=== PATIENT | female | born 1980 | race Caucasian/White ===

== ENCOUNTER 2020-03-19 13:40 | Emergency (ER) | payer OTHER ==
[~2020-03-19] VITALS: Ht 160 cm; Wt 100.0 kg
[2020-03-19 13:40] VITALS: BP 168/116
[2020-03-19] MEDS ORDERED: KETOROLAC 30 MG/ML VIAL. IV ONE (14:30)
[2020-03-19] MEDS ORDERED: diazePAM 5 MG TABLET PO ONE (14:30)
[2020-03-19] MEDS ORDERED: KETOROLAC 30 MG/ML VIAL. IM ONE (14:45)
[2020-03-19 15:17] LABS: BILIRUBIN,URINE NEGATIVE (NEG); CLARITY,URINE CLEAR; COLOR,URINE YELLOW; NITRITE,URINE NEGATIVE (NEG); PH,URINE 5.5 (<5.0-8.0); PROTEIN,URINE NEGATIVE (NEG-TRACE); UROBILINOGEN,URINE 0.2 mg/dL (0.2 mg/dL)
[2020-03-19 15:28] LABS: BACTERIA,URINE FEW /HPF (0-FEW); RBC,URINE 0 /HPF (0-2); WBC,URINE 0 /HPF (0-4)
[2020-03-19] MEDS ORDERED: DIAZ5TAB PO (15:36)
[2020-03-19] MEDS ORDERED: NAPR-514 PO (15:36)
--- NOTE | 2020-03-19 15:37 | ED.ADGEN ---
Past Medical History Past Medical History: No Pertinent History Past Surgical History: No Surgical History Smoking Status: Current Every Day Smoker Additional Information: 0.25 PPD Alcohol Use: None General Adult EDM: Chief Complaint: BACK INJURY HPI: HPI: Patient is a 40 year old female who presents to the emergency department via EMS with complaints of low back pain that radiates to her left buttock and leg. Patient denies any known injury however she reports that she was at work and bent over to pick something up and her back locked up on her. Patient was found by EMS on the floor on her hands and knees. Patient denies a fall. She denies any dysuria, hematuria, increased urinary frequency, fever, cough, sore throat, abdominal pain, nausea, vomiting, or diarrhea. She denies any saddle anesthesia, or loss of bowel/bladder control. She currently rates her pain a 8 out of 10 on the pain scale, she denies any alleviating factors, the pain is worse with movement and weightbearing. Review of Systems: Review of Systems: Complete ROS is negative unless otherwise noted in HPI. Current Medications: Current Medications Medications (Trade) Dose Ordered Sig/[place] Start Time Stop Time Status Last Admin Dose Admin Diazepam (Valium) 5 mg 1X ONCE 03/19/20 14:30 03/19/20 14:31 DC 03/19/20 14:31 5 MG Ketorolac Tromethamine (Toradol 30mg Vial) 30 mg 1X ONCE 03/19/20 14:45 03/19/20 14:46 DC 03/19/20 14:42 30 MG Allergies: Allergies: Allergies Coded Allergies Type Severity Reaction Last Updated Verified No Known Drug Allergies 03/19/20 No Physical Exam: PE: See Above Constitutional: Well developed, well nourished, no acute distress, non-toxic appearance. [] HENT: Normocephalic, atraumatic, bilateral external ears normal, nose normal. [] Eyes: PERRLA, EOMI, conjunctiva normal, no discharge. [] Neck: Normal range of motion, no stridor. [] Cardiovascular:Heart rate regular rhythm Lungs & Thorax: Respirations even and unlabored, no retractions, no respiratory distress Back: Left lumbar paraspinal tenderness to palpation, no bony tenderness, increased pain with straight leg lift on the left. Skin: Warm, dry, no erythema, no rash. [] Extremities: LLE: PMS intact, no tenderness, no obvious deformity, no cyanosis, ROM intact Neurologic: Alert and oriented X 3, no focal deficits noted. [] Psychologic: Affect normal, judgement normal, mood normal. [] Current Patient Data: Labs: Laboratory Tests Test 03/19/20 14:00 03/19/20 14:17 Urine Collection Type Unknown Urine Color Yellow Urine Clarity Clear Urine pH 5.5 (<5.0-8.0) Urine Specific [place] >=1.030 (1.000-1.030) Urine Protein Negative mg/dL (NEG-TRACE) Urine Glucose (UA) Negative mg/dL (NEG) Urine Ketones (Stick) Negative mg/dL (NEG) Urine Blood Negative (NEG) Urine Nitrite Negative (NEG) Urine Bilirubin Negative (NEG) Urine Urobilinogen Dipstick 0.2 mg/dL (0.2 mg/dL) Urine Leukocyte Esterase Negative (NEG) Urine RBC 0 /HPF (0-2) Urine WBC 0 /HPF (0-4) Urine Squamous Epithelial Cells Many /LPF Urine Bacteria Few /HPF (0-FEW) Urine Mucus Marked /LPF POC Urine HCG, Qualitative Hcg negative (Negative) Vital Signs: Vital Signs Date Time Temp Pulse Resp B/P (MAP) Pulse Ox O2 Delivery O2 Flow Rate FiO2 03/19/20 13:40 97.8 79 19 168/116 (133) 97 Room Air 97.8 EKG: EKG: [] Heart Score: Risk Factors: Risk Factors: DM, Current or recent (<one month) smoker, HTN, HLP, family history of CAD, obesity. Risk Scores: Score 0 - 3: 2.5% MACE over next 6 weeks - Discharge Home Score 4 - 6: 20.3% MACE over next 6 weeks - Admit for Clinical Observation Score 7 - 10: 72.7% MACE over next 6 weeks - Early Invasive Strategies Radiology/Procedures: Radiology/Procedures: [] Course & Med Decision Making: Course & Med Decision Making Pertinent Labs and Imaging studies reviewed. (See chart for details) 40-year-old female presented emergency department with complaints of left low back pain that radiated to her left leg. Physical exam is concerning for sciatica. Urine is negative, UA is unremarkable. Patient was given 5 mg of Valium and 30 mg of IM Toradol. She reported feeling better after these medications. Patient provided with sciatica instructions, prescriptions written for both Valium and naproxen. Recommend activity as tolerated. Follow-up with primary care doctor in 1 to 2 days for reevaluation, return to the ER if symptoms worsen. Patient verbalized an understanding of home care, medications, follow-up, and return to ED instructions and was in agreement with the plan of care. [] Dragon Disclaimer: Dragon Disclaimer: This electronic medical record was generated, in whole or in part, using a voice recognition dictation system. Departure Departure Impression: Primary Impression: Acute low back pain with left-sided sciatica Referrals: DARIEL BROWNING (PCP) Patient Instructions: Sciatica, [id number] Additional Instructions: Fill the prescription(s) and use as directed. Apply heat or ice for to sore areas as needed for comfort. Activity as tolerated. Follow up with your primary care doctor this week if symptoms persist, return to the ER if symptoms worsen. Scripts Naproxen (NAPROXEN) 500 Mg Tablet 1 TAB PO BID PRN for PAIN for 10 Days, #20 TAB 0 Refills Prov: CHRISTIN HENDRICKS APRN 03/19/20 Diazepam (VALIUM) 5 Mg Tablet 5 MG PO TID PRN for PAIN for 5 Days, #15 TAB 0 Refills Prov: CHRISTIN HENDRICKS APRN 03/19/20 Problem Qualifiers Primary Impression: Acute low back pain with left-sided sciatica Back pain laterality: left Qualified Codes: M54.42 - Lumbago with sciatica, left side CHRISTIN HENDRICKS APRN Mar 19, 2020 15:37
== END 2020-03-19 15:40 | disposition home or self-care (01) ==
LOC: ER 13:40
DX: M54.42 Lumbago with sciatica, left side (principal); F17.200 Nicotine dependence, unspecified, uncomplicated
CPT/HCPCS: 81001; 81025; 96372; 99283; J1885